=== PATIENT | female | born 1970 | race Caucasian/White ===

== ENCOUNTER 2017-01-29 06:31 | Inpatient (IN) | payer OTHER ==
[2017-01-29] VITALS (28 sets, daily range): BP systolic 105–174; BP diastolic 47–113
[~2017-01-29] VITALS: Ht 152.4 cm; Wt 99.3 kg
--- NOTE | ~2017-01-29 | H ---
[facility] [place] [address] HISTORY AND PHYSICAL Name: VIVIENNE FERRARO ANN Room #: 244-P ADM IN M.R.#: [id number] Admission: 01/29/17 Attend Phys: Elis Correa Discharge: Date of : 66 Report #: [id number] THIS REPORT FOR: //name// CC: Ross Carter DATE OF SERVICE: 01/29/2017 CHIEF COMPLAINT: Nausea and vomiting. HISTORY OF PRESENT ILLNESS: Ms. Ferraro is a 46-year-old female who has had one day of nausea, vomiting and general weakness. She has a history of type 1 diabetes insulin-dependent, and really was unable to eat or drink much yesterday. She had vomiting through the day, but denied any fever or abdominal pain. She has not had any dysuria, cough or shortness of breath. This morning, she was weak and presented to the ER and has been diagnosed with diabetic ketoacidosis. She had a similar episode in 06/2016. PAST MEDICAL HISTORY: Diabetes type 1, prior history of DKA, hypertension. PAST SURGICAL HISTORY: Noncontributory. FAMILY HISTORY: Unknown. SOCIAL HISTORY: She is and lives at home. No chronic alcohol or tobacco use. ALLERGIES: None. MEDICATIONS: NovoLog 10 units with meals, Levemir 36 units at bedtime, bisoprolol hydrochlorothiazide 5/6.25 mg daily. REVIEW OF SYSTEMS: She denies headache, chest pain, abdominal pain, nausea, vomiting, diarrhea, constipation, dysuria, syncope. OBJECTIVE: VITAL SIGNS: Temperature 35.9, pulse 104, respirations 26, blood pressure 142/93, O2 sat 100% on oxygen. GENERAL: She is awake and alert, in no distress. HEAD AND NECK: Unremarkable. LUNGS: Clear. She is tachypneic. HEART: Regular, no murmur, tachycardic. ABDOMEN: Soft, normoactive bowel sounds. No rebound or guarding. EXTREMITIES: No cyanosis, clubbing or edema. NEUROLOGIC: Cranial nerves intact. Motor strength is intact throughout. [address] [address] HISTORY AND PHYSICAL Name: RONANVIVIENNE CHARLES ANN Room #: 244-P [facility] IN .R.#: [id number] Admission: 01/29/17 Attend Phys: Elis Correa Discharge: Date of : 66 Report #: [id number] Lab is reviewed. ASSESSMENT: 1. Diabetic ketoacidosis. 2. Acute cystitis possibly precipitating the above. PLAN: She will be admitted to ICU with DKA treatment and antibiotics. Dr. Carter has been consulted for critical care assistance while in ICU. <ELECTRONICALLY SIGNED> By: Gideon Martinez MD 01/30/17 0814 0854 0909 Gideon Martienz MD /nt
--- NOTE | ~2017-01-29 | D ---
[facility] [place] [address] DISCHARGE SUMMARY Name: VIVIENNE FERRARO ANN Room #: 540-P [facility] IN M.R.#: [id number] Admission: 01/29/17 Attend Phys: Elis Correa Discharge: 01/31/17 Date of : 66 Report #: [id number] THIS REPORT FOR: //name// CC: Ross Carter FINAL DIAGNOSES: 1. Diabetic ketoacidosis. 2. Diabetes type 1, uncontrolled. HOSPITAL COURSE: The patient was admitted with nausea and vomiting and diagnosed with diabetic ketoacidosis. She was treated in ICU with fluid and electrolyte resuscitation along with insulin. The following day, symptoms were much improved and a diet was ordered later in the day. She was switched to her subcutaneous insulin and the drip was discontinued. She transferred out of the ICU to regular floor, she was tolerating a diet, walking the halls and strength has returned. There was initial thought of possible UTI based on urinalysis. However, the culture grew just usual bacteria, antibiotics were discontinued. PHYSICAL EXAMINATION: On the day of discharge: GENERAL: She was awake and alert with stable vital signs. LUNGS: Clear. HEART: Regular. ABDOMEN: Soft, normoactive bowel sounds. EXTREMITIES: No edema. DISPOSITION: To be discharged to home with diabetic diet, activity as tolerated. Follow up with Dr. Hernandez in 1-2 weeks. She will take NovoLog 15 units with meals and Lantus units at bedtime and resume bisoprolol. <ELECTRONICALLY SIGNED> By: Gideon Martinez MD 02/05/17 1018 1330 1358 Gideon Martinez MD /nt
--- NOTE | ~2017-01-29 | HC ---
[facility] [place] [address] CONSULTATION Name: VIVIENNE FERRARO ANN Room #: 540-P [facility] IN M.R.#: [id number] Admission: 01/29/17 Attend Phys: Elis Correa Discharge: Date of : 66 Report #: [id number] THIS REPORT FOR: //name// CC: Ross Carter REFERRING PHYSICIAN: Gideon Martinez MD REASON FOR REFERRAL: Diabetic ketoacidosis. HISTORY OF PRESENT ILLNESS: The patient is a 46-year-old white female who was admitted with nausea, vomiting, and generalized weakness. She was found to be in diabetic ketoacidosis. She was admitted to the ICU. A critical care consultation was requested. DKA protocol has been initiated since the patient's admission. Overall, the patient states that she feels better. Otherwise, denies any recent febrile illness, chest pain, productive cough, night sweats, or chills. Chest x-ray is clear. PAST MEDICAL HISTORY: Life long history of diabetes mellitus type 1, past history of DKA, last one being in June 2016; and essential hypertension. ALLERGIES: None. HOME MEDICATIONS: Include insulin supplements along with bisoprolol/hydrochlorothiazide once a day. FAMILY HISTORY: Noncontributory. SOCIAL HISTORY: She has a boyfriend. She denies any tobacco or alcohol use. REVIEW OF SYSTEMS: As mentioned above, otherwise 10-point system review negative. PHYSICAL EXAMINATION: GENERAL: She is awake, alert, in mild distress. VITAL SIGNS: Temperature is 98 degrees Fahrenheit, pulse is 107, respiratory rate is 32, blood pressure 143/59 mmHg, and saturation is 99%. HEENT: Normocephalic, atraumatic. NECK: Supple without any lymphadenopathy or thyromegaly. CHEST: Breath sounds are good bilaterally without any rales or wheezes. CARDIOVASCULAR: Normal S1, S2. No murmurs or gallop. There is no JVD. There is no carotid bruit. Pulses are 2+/4+ bilaterally. ABDOMEN: Soft, nontender, no organomegaly or masses felt. GENITOURINARY: Deferred. [facility] [address] [place] [address] CONSULTATION Name: VIVIENNE FERRARO ANN Room #: 540-P ADM IN M.R.#: [id number] Admission: 01/29/17 Attend Phys: Elis Correa Discharge: Date of : 66 Report #: [id number] RECTAL: Deferred. EXTREMITIES: There is no edema, cyanosis, or clubbing. LABORATORY DATA: Chest x-ray as mentioned above. Sodium 140, potassium 3.9, chloride 106, CO2 is 7, BUN is 16, and creatinine is 1.2. Admitting blood glucose was 638. WBC 27,100, hemoglobin is 15.9, 2% bandemia. Phosphorus is 3.6, calcium is 8.5, magnesium is 1.5. Arterial blood gas revealed pH 7.66, pCO2 16, pO2 145 on 5 liters of O2. IMPRESSION: 1. Diabetic ketoacidosis, severe. 2. Diabetes mellitus type 1. 3. Profound metabolic acidosis due to diabetic ketoacidosis. 4. Hyperkalemia, likely pseudohyperkalemia due to severe acidosis. 5. Acute kidney injury due to above. 6. Hyponatremia. 7. Hypomagnesemia. 8. Cystitis suspected for possible etiology. RECOMMENDATION: Agree with DKA protocol. IV fluids, insulin supplements has been initiated. Acidosis should correct with aggressive fluids and insulin treatment. For most, the patient needs fluid replacement. The patient states that she has had several DKAs in the past, last one being in June. We will consider undergoing consult if okay with primary. DVT and GI prophylaxis will be addressed. We will follow closely in the ICU. She will also need to be followed closely in regards to electrolyte abnormalities given large volume replacement. In particular, magnesium and phosphorus level should be followed along with rest of the electrolytes. Thank you for this consultation. <ELECTRONICALLY SIGNED> By: Clifton Cabral MD 01/31/17 1408 1452 1539 Clifton Cabral MD /nt
--- NOTE | ~2017-01-29 | EKG ---
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 AU : 1970 Requested By: Cy Sanchez Order Number: [id number] MD: Watson Conklin Measurements Intervals [place] Rate: 107 P: 56 WI: 132 QRS: -42 QRSD: 117 T: 43 QT: 357 QTc: 477 Interpretive Statements Sinus tachycardia Incomplete right bundle branch block Inferior infarct, old Low voltage, precordial leads Compared to ECG 06/14/2016 22:19:35 No significant change was found Electronically Signed On 01-30-2017 8:45:53 CDT by Watson Conklin [email or web address] <ELECTRONICALLY SIGNED> By: Watson Conklin MD, [facility] 01/30/17 0845 08 08 Watson Conklin MD, [facility] /EPI
[~2017-01-29 06:31] MED LIST: BISOPROLOL FUMA10 MG PO; BYSTOLIC 5 MG5 M1 PO; LEVEMIR SUBQ; LEVEMIR100 UNIT/1 SUBQ; NOVOLOG100 UNIT/1 SQ; NOVOLOG100 UNIT/1 SUBQ; ZIAC 10-6.25 M1 EACH PO; ZIAC 5-6.25 MG1 EACH PO
[2017-01-29 07:00] LABS: HEMATOCRIT 51.5 % (37.0-47.0); HEMOGLOBIN 15.9 gm/dL (12.0-15.0); MCH 28.8 pg (26.0-34.0); MCHC 30.8 g/dL (28.0-37.0); MCV 93.4 fL (80.0-100.0); PLATELET COUNT 541 thou/uL (150-400); RBC 5.52 mil/uL (4.20-5.00); RDW 15.5 % (10.5-14.5); WBC 27.1 thou/uL (4.0-11.0)
[2017-01-29 07:02] LABS: ABG SAMPLE TYPE VENOUS; HCO3 4.4 mmol/L (22.0-26.0); MANUAL DIFF YES; O2Hb VENOUS 75.4 (65.0-85.0); PCO2 VENOUS 19.3 mmHg (41.0-51.0); PO2 VENOUS 52.3 mmHg (35.0-45.0); sO2 VENOUS 67.7 % (65.0-85.0)
[2017-01-29 07:06] LABS: FIO2 1.5 %; STICK SITE LINE
[2017-01-29 07:18] LABS: ALBUMIN 4.3 g/dL (3.4-5.0); ALKALINE PHOSPHATASE 309 U/L (46-116); BUN 18 mg/dL (7-18); CALCIUM 10.1 mg/dL (8.5-10.1); CHLORIDE 98 mmol/L (98-107); CREATININE 1.5 mg/dL (0.6-1.0); POTASSIUM 5.8 mmol/L (3.5-5.1); SGOT 18 U/L (15-37); SGPT 50 U/L (30-65); SODIUM 133 mmol/L (136-145); TOTAL BILIRUBIN 0.4 mg/dL (<0.1-1.0); TOTAL PROTEIN 8.7 g/dL (6.4-8.2)
[2017-01-29 07:19] LABS: ANION GAP 30 mmol/L (7-16)
[2017-01-29 07:21] LABS: CO2 < 5 mmol/L (21-32); GLUCOSE 638 mg/dL (74-106)
[2017-01-29 07:42] LABS: ABSOLUTE NEUTROPHILS 22.5 thou/uL (1.4-8.2); METAMYELOCYTES 2 %; TOTAL CELL COUNT 100
[2017-01-29 07:43] LABS: URINE BILIRUBIN NEGATIVE (Negative); URINE BLOOD 2+ (Negative); URINE COLOR YELLOW; URINE GLUCOSE-RANDOM* 2+ (Negative); URINE KETONES 3+ (Negative); URINE LEUKOCYTES-REFLEX 1+ (Negative); URINE PROTEIN (DIPSTICK) 1+ (Negative); URINE SPECIFIC GRAVITY >= 1.030 (1.003-1.035); URINE UROBILINOGEN 0.2 E.U./dl (0.2-1.0)
[2017-01-29 07:43] LABS: ANISOCYTOSIS 1+
[2017-01-29 07:53] LABS: CASTS None Seen /LPF (None Seen); SQUAMOUS >10 Many /LPF (0-3)
[2017-01-29 07:57] LABS: CRYSTALS None Seen /LPF (None Seen); URINE RBC 0-2 Rare /HPF (0-2); URINE WBC-REFLEX >25 Many /HPF (0-5); YEAST-REFLEX Present (None Seen)
[2017-01-29 09:04] LABS: MAGNESIUM 2.1 mg/dL (1.8-2.4); PHOSPHORUS 6.5 mg/dL (2.5-4.9)
[2017-01-29 10:23] LABS: ABG SAMPLE TYPE ARTERIAL; BE(vivo) -29.1 mmol/L (-2 to +3); HCO3 3.1 mmol/L (22.0-26.0); LACTATE 3.52 mmol/L (0.5-2.0); O2(CT) 21.7 mL/dL (15.0-23.0); O2Hb 96.8 % (92.0-98.0); PCO2 16.6 mmHg (35.0-45.0); PO2 145.7 mmHg (80.0-100.0); STICK SITE R.RADIAL; pH 6.885 (7.360-7.450); sO2 96.9 % (92.0-98.0); tCO2 3.6 mmol/L (24.0-30.0)
[2017-01-29 12:11] LABS: ALBUMIN 3.5 g/dL (3.4-5.0); CALCIUM 8.5 mg/dL (8.5-10.1); CREATININE 1.2 mg/dL (0.6-1.0); PHOSPHORUS 3.6 mg/dL (2.5-4.9)
[2017-01-29 12:14] LABS: POTASSIUM 3.9 mmol/L (3.5-5.1)
[2017-01-29 16:11] LABS: ALBUMIN 3.1 g/dL (3.4-5.0); CALCIUM 8.6 mg/dL (8.5-10.1); PHOSPHORUS 1.2 mg/dL (2.5-4.9); POTASSIUM 3.8 mmol/L (3.5-5.1)
[2017-01-29 16:26] LABS: ABG SAMPLE TYPE ARTERIAL; HCO3 14.5 mmol/L (22.0-26.0); LACTATE 1.36 mmol/L (0.5-2.0); O2(CT) 18.3 mL/dL (15.0-23.0); O2Hb 95.9 % (92.0-98.0); PCO2 28.4 mmHg (35.0-45.0); PO2 81.4 mmHg (80.0-100.0); sO2 95.4 % (92.0-98.0); tCO2 15.3 mmol/L (24.0-30.0)
[2017-01-29 16:27] LABS: FIO2 21 %; STICK SITE R.RADIAL; pH 7.325 (7.360-7.450)
[2017-01-29 20:13] LABS: ALBUMIN 2.9 g/dL (3.4-5.0); CALCIUM 8.4 mg/dL (8.5-10.1); PHOSPHORUS 1.5 mg/dL (2.5-4.9)
[2017-01-29 20:15] LABS: POTASSIUM 4.8 mmol/L (3.5-5.1)
[2017-01-30] VITALS (8 sets, daily range): BP systolic 113–131; BP diastolic 47–79
[2017-01-30 04:53] LABS: HEMATOCRIT 34.4 % (37.0-47.0); MCH 29.1 pg (26.0-34.0); MCHC 33.7 g/dL (28.0-37.0); RBC 3.99 mil/uL (4.20-5.00); RDW 13.7 % (10.5-14.5); WBC 12.4 thou/uL (4.0-11.0)
[2017-01-30 05:00] LABS: HEMOGLOBIN 11.6 gm/dL (12.0-15.0); MCV 86.4 fL (80.0-100.0)
[2017-01-30 05:08] LABS: ALBUMIN 2.6 g/dL (3.4-5.0); CALCIUM 8.3 mg/dL (8.5-10.1); CREATININE 0.8 mg/dL (0.6-1.0); PHOSPHORUS 1.3 mg/dL (2.5-4.9)
[2017-01-30 05:13] LABS: POTASSIUM 3.1 mmol/L (3.5-5.1)
[2017-01-30 05:53] LABS: ABG SAMPLE TYPE ARTERIAL; BE(vivo) -6.1 mmol/L (-2 to +3); HCO3 18.5 mmol/L (22.0-26.0); O2(CT) 16.5 mL/dL (15.0-23.0); O2Hb 94.9 % (92.0-98.0); PCO2 33.7 mmHg (35.0-45.0); PO2 78.9 mmHg (80.0-100.0); STICK SITE RRA; pH 7.358 (7.360-7.450); sO2 95.4 % (92.0-98.0); tCO2 19.6 mmol/L (24.0-30.0)
[2017-01-30 11:48] LABS: CALCIUM 8.5 mg/dL (8.5-10.1); CREATININE 0.8 mg/dL (0.6-1.0)
[2017-01-30 11:49] LABS: POTASSIUM 4.5 mmol/L (3.5-5.1)
[2017-01-30 17:36] LABS: CALCIUM 8.9 mg/dL (8.5-10.1); CREATININE 0.8 mg/dL (0.6-1.0); POTASSIUM 3.8 mmol/L (3.5-5.1)
[2017-01-31 03:49] VITALS: BP 128/77
[2017-01-31 06:01] LABS: CALCIUM 8.4 mg/dL (8.5-10.1); CREATININE 0.6 mg/dL (0.6-1.0); POTASSIUM 3.1 mmol/L (3.5-5.1)
[2017-01-31 06:04] LABS: ABSOLUTE NEUTROPHILS 3.8 thou/uL (1.4-8.2); BASOPHILS 0.3 % (0.0-2.0); EOSINOPHILS 1.1 % (0.0-3.0); HEMATOCRIT 34.7 % (37.0-47.0); HEMOGLOBIN 11.8 gm/dL (12.0-15.0); MCH 28.9 pg (26.0-34.0); MCHC 33.9 g/dL (28.0-37.0); MCV 85.4 fL (80.0-100.0); MONOCYTES 7.4 % (1.0-8.0); PLATELET COUNT 204 thou/uL (150-400); POLYS 59.2 % (36.0-66.0); RBC 4.06 mil/uL (4.20-5.00); RDW 13.5 % (10.5-14.5); WBC 6.4 thou/uL (4.0-11.0)
[2017-01-31 06:34] LABS: MANUAL DIFF NO
[2017-01-31 08:00] VITALS: BP 142/83
[2017-01-31 13:23] VITALS: BP 142/83
== END 2017-01-31 14:30 | disposition home or self-care (01) | DRG 638 ==
LOC: ER 06:31 → ICU 08:05 → EROBS 08:05 → ICU 08:12 → 5S 01-30 13:45
PROVIDERS: Emergency Medicine; Internal Medicine; Internal Medicine Geriatric Medicine
PROC: 05HC33Z Insertion of Infusion Device into Left Basilic Vein, Percutaneous Approach (ICD-10-PCS; principal; 2017-01-29)
PROC: B54NZZA Ultrasonography of Left Upper Extremity Veins, Guidance (ICD-10-PCS; principal; 2017-01-29)
DX: E13.10 Other specified diabetes mellitus with ketoacidosis without coma (principal); N30.00 Acute cystitis without hematuria; N17.9 Acute kidney failure, unspecified; E87.1 Hypo-osmolality and hyponatremia; I10 Essential (primary) hypertension; E87.5 Hyperkalemia; E83.42 Hypomagnesemia; Z79.4 Long term (current) use of insulin; Z79.899 Other long term (current) drug therapy
CPT/HCPCS: 10078; 10785; 27000

== ENCOUNTER → 2017-09-27 | Outpatient (CLI) | payer OTHER | LOC: ULTRA 10:36 | DX: K80.80 Other cholelithiasis without obstruction (principal); R16.1 Splenomegaly, not elsewhere classified ==

== ENCOUNTER 2020-02-02 18:25 | Inpatient (IN) | payer OTHER ==
[~2020-02-02] VITALS: Ht 154.9 cm; Wt 90.7 kg
[2020-02-02 18:25] VITALS: BP 153/100
[2020-02-02 20:58] LABS: ABSOLUTE NEUTROPHILS 6.1 thou/uL (1.4-8.2); BASOPHILS 0.6 % (0.0-2.0); EOSINOPHILS 0.2 % (0.0-3.0); HEMATOCRIT 39.3 % (37.0-47.0); HEMOGLOBIN 12.7 gm/dL (12.0-15.0); LYMPHOCYTES 16.8 % (24.0-44.0); MCH 29.6 pg (26.0-34.0); MCHC 32.2 g/dL (28.0-37.0); MCV 91.7 fL (80.0-100.0); MONOCYTES 5.6 % (1.0-8.0); PLATELET COUNT 270 thou/uL (150-400); POLYS 76.8 % (36.0-66.0); RBC 4.28 mil/uL (4.20-5.00); RDW 14.7 % (10.5-14.5); WBC 7.9 thou/uL (4.0-11.0)
[2020-02-02 21:02] LABS: CALCIUM 8.7 mg/dL (8.5-10.1); CREATININE 0.7 mg/dL (0.6-1.0); POTASSIUM 4.6 mmol/L (3.5-5.1)
[2020-02-02 21:08] LABS: ALBUMIN 3.2 g/dL (3.4-5.0); TOTAL BILIRUBIN 0.9 mg/dL (0.2-1.0); TOTAL PROTEIN 6.8 g/dL (6.4-8.2)
[2020-02-03] VITALS (10 sets, daily range): BP systolic 123–148; BP diastolic 69–96
[2020-02-03] LABS: URINE BILIRUBIN NEGATIVE (Negative); URINE BLOOD NEGATIVE (Negative); URINE CLARITY CLEAR; URINE COLOR YELLOW; URINE GLUCOSE-RANDOM* 3+ (Negative); URINE KETONES 3+ (Negative); URINE LEUKOCYTES-REFLEX NEGATIVE (Negative); URINE NITRITE-REFLEX NEGATIVE (Negative); URINE PROTEIN (DIPSTICK) NEGATIVE (Negative); URINE UROBILINOGEN 0.2 E.U./dl (0.2-1.0)
[2020-02-03] MEDS ORDERED: LEVEMIR100 UNIT/1 SUBQ (00:16)
[2020-02-03 02:30] LABS: CALCIUM 8.7 mg/dL (8.5-10.1); POTASSIUM 4.4 mmol/L (3.5-5.1)
--- NOTE | 2020-02-03 08:03 | EKG ---
[facility] [place] [address] ELECTROCARDIOGRAM REPORT Name: VIVIENNE FERRARO ANN Room #: 460-P ADM IN M.R.#: [id number] Admission: 02/02/20 Attend Phys: Darien Del Cid MD Discharge: Date of : 66 Report #: [id number] THIS REPORT FOR: cc: Ross Hernandez MD, Christopher B. 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 Service: JUAN : 1970 Requested By: Fredis Santacruz Order Number: [id number] MD: Watson Conklin Measurements Intervals [place] Rate: 78 P: 49 MT: 128 QRS: -31 QRSD: 109 T: 30 QT: 410 QTc: 468 Interpretive Statements Sinus rhythm Left axis deviation RSR' in V1 or V2, probably normal variant Compared to ECG 01/29/2017 08:05:57 Sinus tachycardia no longer present Inferior Q waves are less prominent Electronically Signed On 02-03-2020 8:03:37 CDT by Watson Conklin [email or web address] <ELECTRONICALLY SIGNED> By: Watson Conklin MD, [facility] 02/03/20 0803 2324 2324 Watson Conklin MD, [facility] /EPI
--- NOTE | 2020-02-03 11:52 | 2DMMODE ---
[facility] [address] [place] [address] 2 D/M-MODE ECHOCARDIOGRAM Name: VIVIENNE FERRARO ANN Room #: 460-P ADM IN M.R.#: [id number] Admission: 02/02/20 Attend Phys: Darien Del Cid MD Discharge: Date of : 66 Report #: [id number] THIS REPORT FOR: cc: Ross Hernandez MD, Christopher B. MD Lammoglia, Francisco J. MD ~ APPROVED REPORT Study performed: 02/03/2020 09:56:58 EXAM: Comprehensive 2D, Doppler, and color-flow Echocardiogram Patient Location: Bedside Room #: 460 Status: routine BSA: 1.87 HR: 77 bpm BP: 142/69 mmHg Rhythm: NSR Other Information Study Quality: Good Indications Diabetes Syncope Hypertension/HDD 2D Dimensions RVDd: 34.78 mm IVSd: 8.95 (7-11mm) LVOT Diam: 19.72 (18-24mm) LVDd: 50.48 mm PWd: 10.68 (7-11mm) Ascending Ao: 32.15 (22-36mm) LVDs: 34.35 (25-40mm) Aortic Root: 33.39 mm IVC: 18.00 mm Volumes Left Atrial Volume (Systole) Single Plane 4CH: 68.79 mL Single Plane 2CH: 60.49 mL LA ESV Index: 38.00 mL/m2 Aortic Valve AoV Peak Bhaskar.: 1.81 m/s AO Peak Gr.: 13.11 mmHg LVOT Max P.29 mmHg LVOT Max V: 1.15 m/s [facility] [address] [address] 2 D/M-MODE ECHOCARDIOGRAM Name: VIVIENNE FERRARO ANN Room #: 460-P [facility] IN [facility]#: [id number] Admission: 02/02/20 Attend Phys: Elis Nguyen Discharge: Date of : 66 Report #: [id number] DEMARCUS Vmax: 1.94 cm2 Mitral Valve E/A Ratio: 1.1 MV Decel. Time: 203.19 ms MV E Max Bhaskar.: 1.03 m/s MV A Bhaskar.: 0.93 m/s MV PHT: 58.93 ms IVRT: 78.43 ms Pulmonary Valve PV Peak Bhaskar.: 0.92 m/s PV Peak Gr.: 3.36 mmHg Pulmonary Vein P Vein S: 0.45 m/s P Vein A: 0.25 m/s P Vein D: 0.30 m/s P Vein A Dur.: 92.3 msec P Vein S/D Ratio: 1.50 Left Ventricle The left ventricle is normal size. There is normal LV segmental wall motion. There is normal left ventricular wall thickness. Left ventricular systolic function is normal. The left ventricular ejection fraction is within the normal range. LVEF is 55-60%. The left ventricular diastolic function is normal. Right Ventricle The right ventricle is normal size. The right ventricular systolic function is normal. Atria The left atrium size is normal. The right atrium size is normal. Aortic Valve The aortic valve is normal in structure. No aortic regurgitation is present. There is no aortic valvular stenosis. Mitral Valve The mitral valve is normal in structure. There is no mitral valve regurgitation noted. No evidence of mitral valve stenosis. Tricuspid Valve The tricuspid valve is normal in structure. There is no tricuspid valve regurgitation noted. Pulmonic Valve [facility] [address] [place] [address] 2 D/M-MODE ECHOCARDIOGRAM Name: VIVIENNE FERRARO ANN Room #: 460-P ADM IN M.R.#: [id number] Admission: 02/02/20 Attend Phys: Elis Nguyen Discharge: Date of : 66 Report #: [id number] The pulmonary valve is normal in structure. There is no pulmonic valvular regurgitation. Great Vessels The aortic root is normal in size. IVC is normal in size and collapses >50% with inspiration. Pericardium There is no pericardial effusion. <Conclusion> The left ventricle is normal size. LVEF is 55-60%. The aortic valve is normal in structure. The mitral valve is normal in structure. The tricuspid valve is normal in structure. The pulmonary valve is normal in structure. There is no pericardial effusion. <ELECTRONICALLY SIGNED> By: Mike Sanabria MD 02/03/20 1151 1151 1151 Mike Sanabria MD /INF
--- NOTE | 2020-02-03 16:01 | NUR ---
PATIENT CALLED AT APPROX. 1500 SAYING SHE FELT LIKE HER BLOOD SUGAR WAS LOW. ACCUCHECK WAS PERFORMED AFTER AND WAS UNABLE TO BE OBATINED. PATIENT WAS ASSYMPTOMATIC SO APPLE JUICE AND PB & ERNESTO CRACKER WERE GIVEN AND TAKEN 15 MINS AFTER. FSBS WAS 19; WAS NOTIFIED. GLUCOSE TUBE WAS ADMINISTERED. DEXTROSE WAS PUSHED WITH ASSIST FROM TAHIRA WIN. PATIENT REMAINS ASSYMPTOMATIC AND IS A&OX4. ENDOCRINOLGY WAS CONSULTED STAT. WILL CONTINUE TO MONITOR.
--- NOTE | 2020-02-03 16:06 | NUR ---
PT ADMITTED RELATED TO SYNCOPAL EPISODES. CM REVIEWED CHART AND SPOKE WITH CARE TEAM. CM CALLED AND SPOKE WITH PT AT BEDSIDE THIS DAY. PT APPEARED TO BE A&O X4. CM ROLE INTORODUCED. PT INDICATED SHE LIVES IN A DUPLEX ALONE WITH NO STEPS TO ENTER AND NO STEPS INSIDE. PT INDICATED SHE HAD BEEN INDEPDENENT WITH GAIT AND ADLS TURNING SANDER TENDER. PT INDICATED NO HH OR OP THERAPY HISTORY. PT INDICATED THAT SHE PLANS TO RETURN HOME ONCE MEDICALLY STABLE. CM TO FOLLOW INDICATED WITH DC PLANNING.
--- NOTE | 2020-02-03 16:08 | NUR ---
PATIENTS REMAINS A&OX4 AND IN GOOD SPIRITS. NEW FSBS IS 109. ALL INSULIN AND DIABETIC MEDICATION HELD UNTIL FURTHER NOTICE PER PROVIDER
[2020-02-03 17:04] LABS: TSH 0.701 uIU/mL (0.358-3.740)
--- NOTE | 2020-02-03 18:13 | NUR ---
ASSUMED CARE AT SHIFT CHANGE. ASSESSMENT CHARTED WITH ASSIST FROM AUDELIA HOFFMANN. MEDICATIONS ADMINISTERED PER AUG. VSS. DENIES PAIN. AT APPROX. 1500 PATIENT HAD A CRITICALLY LOW FSBS. PROVIDER AWARE AND SENIOR RADIATION THERAPIST WAS CALLED AND SAW PATIENT. PATIENT CURRENTLY ON 10% DEXTROSE PER PROTOCOL ORDER. PATIENT TO BE OFF AFTER 2 CONSECTUTIVE FSBS OR GREATER THAN OR EQUAL TO 180 MG/DL. PATIENT WAS AND REMAINS ASSYMPTOMATIC. VOICES NO OTHER NEEDS AT THIS TIME. WILL CALL NEEDED. FALL PRECAUTIONS IN PLACE. WILL CONTINUE TO MONITOR AND FOLLOW POC
--- NOTE | 2020-02-03 18:15 | NUR ---
I AGREE WITH NURSING NOTE AND NURSING ASSESSMENT DONE BY MILENA/TRAVEL AGENT.
--- NOTE | 2020-02-04 04:27 | NUR ---
VSS-AFEBRILE. LUNGS CLEAR-ROOM AIR. OOB WITH 1 ASSIST, NO SYNCOPAL EPISODES OR DIZZINESS. MONITORED BLOOD SUGARS EVERY 2-3 HOURS OVERNIGHT, NO EPISODES OF HYPOGLYCEMIA. FALL PRECAUTIONS IN PLACE, CALLS APPROPRIATELY FOR ANY NEEDED ASSISTANCE.
[2020-02-04 07:50] VITALS: BP 134/86
[2020-02-04] MEDS ORDERED: HUMALOG100 UNIT/1 SUBQ (10:38)
[2020-02-04] MEDS ORDERED: LANTUS SUBQ (10:38)
--- NOTE | 2020-02-04 12:28 | HC ---
[facility] [place] [address] CONSULTATION Name: VIVIENNE FERRARO ANN Room #: 460-P [facility] IN M.R.#: [id number] Admission: 02/02/20 Attend Phys: Darien Del Cid MD Discharge: Date of : 66 Report #: [id number] THIS REPORT FOR: cc: Rsos Hernandez MD,Shruthi Lara MD, MD ~ CC: Darien Hernandez DATE OF SERVICE: 02/03/2020 ENDOCRINE CONSULTATION NOTE CONSULTING PHYSICIAN: Dr. Del Cid. REASON FOR CONSULTATION: Type 1 diabetes mellitus, hypoglycemia. HISTORY OF PRESENT ILLNESS: This is a 49-year-old female patient whose medical background is significant primarily for type 1 diabetes mellitus diagnosed 5 years ago. The patient has since been treated primarily with insulin and has suffered multiple episodes of DKA. The patient's most recent regimen had consisted of Levemir insulin, which had recently been tapered down from 30 units at bedtime to 25 units at bedtime, in addition to NovoLog insulin 20 units t.i.d. a.c. The patient maintains that her glycemic control is rather balanced and that most of blood glucose values at home range from 100-180 mg/dL with very limited hypoglycemia and rare excursions above 200 mg/dL. The patient is not aware of issues pertaining to diabetic retinopathy, nephropathy, or neuropathy. Interestingly, the patient notes that for the past 5 days. She has suffered ill-defined symptoms including feeling in a haze, bladder incontinence and being a bit confused, which she thought was potentially due to low blood glucose values, but she has not been able to document hypoglycemia. Visiting with Dr. Hernandez yesterday, the valid concern of a possible seizure-like activity was raised and she was subsequently admitted to [facility] for further care and monitoring. Upon admission, the patient was placed on a similar insulin regimen consisting of Lantus insulin 25 units daily as well as Humalog insulin 20 units with meals. A few hours ago, the patient developed severe hypoglycemia with blood glucose values recorded as low as 19 mg/dL. Subsequently, the patient was resuscitated with dextrose 50 as per the [facility] hypoglycemia protocol. The patient takes bisoprolol/hydrochlorothiazide 5/6.25 mg tablets daily for blood pressure control. REVIEW OF SYSTEMS: [facility] [address] [place] [address] CONSULTATION Name: VIVIENNE FERRARO ANN Room #: 460-P [facility] IN M.R.#: [id number] Admission: 02/02/20 Attend Phys: Darien Del Cid MD Discharge: Date of : 66 Report #: [id number] CONSTITUTIONAL: Negative for fatigue, tiredness, body weight changes, fever or chills. HEENT: Negative for sore throat, sinus pain, ear drainage. PULMONARY: Negative for shortness of breath, cough or hemoptysis. CARDIAC: Negative for chest pain, palpitations, syncope or presyncope. GASTROINTESTINAL: Negative for abdominal pain, nausea, vomiting or changes in bowel frequency. NEUROLOGY: Negative for loss of consciousness, seizure activity, but noted for the confusion state noted above. PSYCHIATRIC: Negative for depression, anxiety, or other major psychological issues. Otherwise, review of systems noncontributory other than those mentioned in HPI. PAST MEDICAL HISTORY: 1. Type 1 diabetes mellitus with multiple DKA episodes in the past. 2. Hypertension. OUTPATIENT MEDICATIONS: 1. NovoLog insulin 20 units t.i.d. a.c. 2. Levemir 25 units at bedtime. 3. Bisoprolol/hydrochlorothiazide 5/6.25 mg daily. ALLERGIES: No known drug allergies. FAMILY HISTORY: Noncontributory. SOCIAL HISTORY: The patient works for the [employer]. She lives alone. Denies use of tobacco, alcohol or illicit drugs. PHYSICAL EXAMINATION: GENERAL: Pleasant female patient who is not in apparent pain or distress. VITAL SIGNS: Blood pressure is 132/87 mmHg, heart rate is 64 beats per minute, respiration 18 per minute, temperature 36.9 degrees Celsius. CONSTITUTIONAL: The patient is lying in bed, appears comfortable, not in apparent distress. HEENT: Anicteric sclerae. Intact extraocular motions. NECK: Supple, without JVD, carotid bruits or lymphadenopathy. I do not appreciate thyromegaly. CHEST: Noted for moderate air entry bilaterally with scattered rales. HEART: Regular rate and rhythm without murmurs or gallops. ABDOMEN: Soft and lax without tenderness or organomegaly. She has active bowel sounds. EXTREMITIES: Lower extremity exam is negative for ankle edema, skin breaks or ulcerations; however, her right big toe is diffusely bruised. She appears to have hit it during her confusion state. [address] [address] CONSULTATION Name: RONANMEYR CHARLESWENDY Room #: 460-P [facility] IN M.R.#: [id number] Admission: 02/02/20 Attend Phys: Darien Del Cid MD Discharge: Date of : 66 Report #: [id number] NEUROLOGIC: Awake, alert and oriented to time, place and person. The remainder of her examination is nonfocal. PSYCHIATRY: Pleasant, interactive. Normal thought process. LABORATORY DATA: Blood glucose on arrival was 368, has gotten as high as 442 mg/dL last night, this morning was at 91 mg/dL and at 3:30 was less than 20, most recently at 83 mg/dL. Sodium 140, potassium 4.4, chloride 107, CO2 of 16, anion gap 17, BUN 10, creatinine 1.0, AST 29, amylase 277, lipase 64, calcium 8.7, total bilirubin 0.9, phosphorus 1.9, magnesium 2.0, alkaline phosphatase 282, ALT 31, total protein 6.8, albumin 3.2, EGFR 58, lactic acid 0.9. White blood count 7.9, hemoglobin 12.7, hematocrit 39.3, platelets 270. Hemoglobin A1c done in 06/2016 was at 9.4%. ASSESSMENT AND PLAN: 1. Type 1 diabetes mellitus. As noted above, the patient reports will adjust her blood glucose values at home on her outpatient insulin regimen. I will check a hemoglobin A1c to get a better assessment of this aspect. As detailed in the HPI, the patient had developed severe hypoglycemia upon the implementation of her exact insulin regimen at home, almost certainly due to the differential in diet and food intake over the past 24 hours. That said, I will cut back her meal coverage to Humalog 10 units with meals, to be held if her blood glucose is below 100 and will drop down Lantus to 20 units at bedtime. I will provide the Humalog supplemental scale low intensity for coverage as needed and maintain blood glucose monitoring a.c. and at bedtime. 2. Hypoglycemia, severe. The patient was resuscitated with the use of IV D50 and did well. I have discussed her standing with the nursing staff and requested that she be placed on D10 at a rate of 70 mL per hour until we ensure her glucose stability, namely by the recording of blood glucose values of 180 mg/dL twice in a row, after which we can taper off dextrose support. Blood glucose monitoring will continue as needed and further response to hypoglycemia is to be conducted as per the [facility] hypoglycemia protocol. 3. Hypertension. The patient is maintained on bisoprolol therapy with adequate blood pressure control, she is to continue with the same. I certainly appreciate this consultation by Dr. Tucker. <ELECTRONICALLY SIGNED> By: Shruthi Anders MD 02/04/20 1228 1640 [id number] Shruthi Anders MD /nt
[2020-02-04 13:24] VITALS: BP 134/86
--- NOTE | 2020-02-04 14:21 | NUR ---
ASSUMED CARE OF PATIENT AT SHIFT CHANGE. ASSESSMENT CHARTED. VSS. PATIENT IS A&OX4, DENIES PAIN. PATIENT HAD AN EEG DONE TODAY. LATER PROVIDER CLEARED HER FOR DISCHARGE. PATIENT VOICED NO CONCERNS. AT 1345 DISCHARGE INSTRUCTIONS AND PACKET WERE GIVEN TO PATIENT. PATIENT VERBALIZED UNDERSTANDING. PATIENT WAS WHEELED OUT TO A PRIVATE VEHICLE AT 1405 AND LEFT THE PREMISES AT 1408. IV WAS D/C'D, NO COMPLAINTS OR CONCERNS NOTED.
--- NOTE | 2020-02-04 14:24 | NUR ---
CARE TEAM INDICATED THAT PT IS MEDICALLY STABLE TO DISCHARGE HOME THIS DAY. PT IS TO DC HOME TO SELF CARE. NO FURTHERE CM INTERVENTION INDICATED. CASE CLOSED.
--- NOTE | 2020-02-04 15:20 | NUR ---
I AGREE WITH NURSING NOTE AND NURSING ASSESSMENT DONE BY MILENA/ADMINISTRATIVE PROCESSOR.
--- NOTE | 2020-02-04 19:57 | HC ---
[facility] [place] [address] CONSULTATION Name: VIVIENNE FERRARO ANN Room #: 460-P [facility] IN M.R.#: [id number] Admission: 02/02/20 Attend Phys: Darien Del Cid MD Discharge: 02/04/20 Date of : 66 Report #: [id number] THIS REPORT FOR: cc: Ross Hernandez MD,Poli Sanders MD, MD ~ CC: Darien Hernandez DATE OF SERVICE: 02/03/2020 HISTORY OF PRESENT ILLNESS: This is a 49-year-old female patient who was evaluated by me for possibility of seizure. The patient says that she had an episode where she dazed out. She thought the episodes were because of hypoglycemia, but the primary care thought that she needs to be further worked up for seizure and she was admitted because of that. She has a longstanding history of diabetes. She has hypoglycemia in the past. She wakes up with the daze. I do not know whether she has any tonic-clonic activity. She lives on her own. REVIEW OF SYSTEMS: Positive for type 1 diabetes. She otherwise is very healthy. She says she does not have any prior history of stroke or any cardiac issues. Nurses tell me her blood sugar was 19, which is pretty low, but she did not have that much symptoms, but her blood sugar has gone low. She is already seen by Endocrinology. She has multiple episodes of diabetic ketoacidosis, as I understand, that was a relevant 14-point review of system. PAST MEDICAL HISTORY: Positive for diabetes. FAMILY HISTORY: Negative for early age stroke. SOCIAL HISTORY: She lives by herself. She does not smoke or drink any alcohol. PHYSICAL EXAMINATION: Indicates she is alert. She is responsive. She can follow simple and complex command. Cranial nerve examinations appear unremarkable. Neuromuscular examinations as checked for strength, sensation, reflexes were symmetrical. There is no meningeal sign. There is no cerebellar sign. I could not look at the fundus. She is alert, responsive. Her hearing and vision looks adequate. There is no thyroid mass. Blood pressure is 123/76, respiration is 18, pulse is 62, temperature is 98.4. LABORATORY DATA: Indicate a white count of 7.9. She had an MRI of the brain as well as EEG. Both were reviewed. Both are within normal limits. IMPRESSION: Because of her documented hypoglycemia here and the MRI and EEG being normal, it is unlikely this patient is having seizures. Presently, I will [address] [address] CONSULTATION Name: VIVIENNE FERRARO ANN Room #: 460-P [facility] IN ..#: [id number] Admission: 02/02/20 Attend Phys: Darien Del Cid MD Discharge: 02/04/20 Date of : 66 Report #: [id number] suggest continuing the workup and management of hypoglycemia. She should monitor her blood sugar closely and presently I think she should refrain from driving until these spells are figured out and treated. She should also take precautions where she can hurt herself during these spells. Otherwise, neurologically, I have nothing specific to add because the workup is complete and is negative. I will suggest continue with a systemic workup, especially the workup for hypoglycemia. We will sign off and follow up as needed. Thank you very much for this referral. <ELECTRONICALLY SIGNED> By: Poli Isaacs MD 02/04/201956 14 30 Poli Isaacs MD /nt
--- NOTE | 2020-02-04 19:58 | EEG ---
[facility] [place] [address] ELECTROENCEPHALOGRAM Name: VIVIENNE FERRARO Room #: 460-P [facility] IN M.R.#: [id number] Admission: 02/02/20 Attend Phys: Darien Del Cid MD Discharge: 02/04/20 Date of : 66 Report #: [id number] THIS REPORT FOR: //name// CC: [facility]id [facility] DATE OF SERVICE: 02/04/2020 This patient is being evaluated for the possibility of seizure. EEG was done by placing the electrode by standard 10-20 system of electrode placement. Both referential and sequential montages were used for recording. Background activity in this patient's EEG is about 11 Hz and 40 microvolt. This is a symmetrical activity. Photic stimulation is unremarkable. Throughout the record, no active epileptiform activity was noticed. The patient went to sleep -- associated with bilateral slowing and vertex sharp waves. IMPRESSION: This patient's EEG is within normal limits and does not demonstrate any clear-cut epileptiform activity. Thank you very much for this referral. <ELECTRONICALLY SIGNED> By: Poli Isaacs MD 02/04/20 [id number] Poli Isaacs MD /nt
[2020-02-05 01:06] LABS: GLYCOHEMOGLOBIN (HGB A1C) 8.7 % (4.8-5.6)
== END 2020-02-04 14:08 | disposition home or self-care (01) | DRG 638 ==
LOC: ER 18:25 → 4W 23:43 → EROBS 23:43 → 4W 02-03 04:01
PROVIDERS: Emergency Medicine; Internal Medicine; Nurse Practitioner Family; Psychiatry & Neurology Neuromuscular Medicine; ADMIT Hospitalist; ATTEND Hospitalist
DX: E10.649 Type 1 diabetes mellitus with hypoglycemia without coma (principal); E44.0 Moderate protein-calorie malnutrition; R55 Syncope and collapse; I10 Essential (primary) hypertension; Z79.899 Other long term (current) drug therapy; Z79.4 Long term (current) use of insulin
CPT/HCPCS: 10045